=== PATIENT | female | born 1950 | race Caucasian/White ===

== ENCOUNTER 2016-10-15 10:24 | Emergency (ER) | payer MEDICARE ==
[2016-10-15] MEDS ORDERED: Sterile Water 10 ML ONE (11:43)
[2016-10-15] MEDS ORDERED: methylPREDNISolone Sod Succ/PF 125 MG/2 ML VIAL ONE (11:43)
[2016-10-15] MEDS ORDERED: Ondansetron HCl/PF 4 MG/2 ML Vial ONE (11:43)
[2016-10-15] MEDS ORDERED: Azithromycin 250 MG TAB ONE (11:43)
[2016-10-15] MEDS ORDERED: Dexamethasone 10 MG/ML VIAL ONE (11:43)
[2016-10-15] MEDS ORDERED: Ketorolac Tromethamine 30 MG/ML VIAL ONE (11:43)
[2016-10-15 12:17] LABS: ALT (SGPT) 23 U/L (0-55); AST (SGOT) 23 U/L (5-34); Albumin 3.8 g/dL (3.4-4.8); Alkaline Phosphatase 91 U/L (40-150); Anion Gap 15 mmol/L (10-20); BUN (Urea Nitrogen) 23 mg/dL (9.8-20.1); Bilirubin, Total 0.3 mg/dL (0.2-1.2); Calc. Creatinine Clearance 0 mL/min (70-130); Calcium 9.1 mg/dL (7.8-10.44); Carbon Dioxide 28 mmol/L (23-31); Chloride 99 mmol/L (98-107); Estimated GFR-MDRD 40; Globulin 3.3 g/dL (2.4-3.5); Glucose 124 mg/dL (80-115); Potassium 3.8 mmol/L (3.5-5.1); Protein, Total 7.1 g/dL (5.8-8.1); Sodium 138 mmol/L (136-145)
--- NOTE | 2016-10-15 12:17 | RAD ---
PA AND LATERAL CHEST X-RAY 10/15/2016 HISTORY: Dyspnea. COMPARISON: 08/14/2016. FINDINGS: Cardiac silhouette remains at the upper limits of normal in size. Pulmonary vasculature is within n ormal limits, and the lungs remain clear. There are degenerative changes in the spine with right co nvex scoliosis of the thoracic spine. No other interval change. IMPRESSION: No acute cardiopulmonary process. Chest is stable from prior exam. POS: [facility]
[2016-10-15 12:26] LABS: Band 10 % (5-11); Hemoglobin 13.7 g/dL (12.0-16.0); Lymphocytes 18 % (21-51); MDiff Complete? YES; Mean Corpuscular HGB CONC 33.6 g/dL (32.0-36.0); Mean Corpuscular Hemoglobin 30.6 pg (27.0-31.0); Mean Corpuscular Volume 90.9 fl (81.0-99.0); Mean Platelet Volume 8.3 fL (7.4-10.4); Monocytes 15 % (0-10); Neutrophil 57 % (42-75); Platelet Count 194 thou/uL (130-400); RBC Distribution Width 11.8 % (11.5-14.5); Red Blood Cell (RBC) Count 4.47 mill/uL (4.20-5.40); White Blood Cell (WBC) Count 5.9 thou/uL (4.8-10.8)
--- NOTE | 2016-10-15 12:49 | PICIS ---
[facility] EMERGENCY RECORD TRIAGE (FriOct 15, 2016 10:29 SFRE) TRIAGE NOTES: REPORTS WORSENING OF BRONCHITIS. (FriOct 15, 2016 10:29 SFRE) PATIENT: NAME: Isi Bennett, AGE: 66, GENDER: female, : Fri1950, TIME OF GREET: FriOct 15, 2016 10:25, PREFERRED LANGUAGE: Namibian, ETHNICITY: Not or , ECODE BILLING MAP: [facility], SSN: [id number], Zip Code: [address], KG WEIGHT: [phone], PHONE: , , , PERSON ID: [id number], PCP: MD CECI, LORRAINE. (FriOct 15, 2016 10:29 SFRE) COMPLAINT: DIFFICULTY BREATHING. (FriOct 15, 2016 10:29 SFRE) ADMISSION: URGENCY: 3 Urgent, ADMISSION SOURCE: Home, TRANSPORT: Walk-in, BED: ED -02. (FriOct 15, 2016 10:29 SFRE) PAIN: Patient complains of pain described as, sharp, on a scale 0-10 patient rates pain as 8, Location CHEST ONLY WHEN COUGHING, Pain is intermittent, Aggravating factors:, Aggravating factors include COUGH. (10:32 SFRE) IMMUNIZATIONS: Flu vaccine not up to date, Tetanus immunization up to date, Date of immunization: 08/2016, Pneumococcal vaccine not up to date. (10:32 SFRE) SIRS SCORING: Heart Rate 55-109 (0), Temp range 96.8-101.1 (0), respiratory rate 12-24 (0), Mental Status altered: no (0). (10:32 SFRE) TRIAGE SCREENING: Patient denies suicidal ideation, Patient denies presence of domestic violence. (10:32 SFRE) PROVIDERS: TRIAGE NURSE: Ada West RN. (FriOct 15, 2016 10:29 SFRE) VITAL SIGNS: BP 121/77, Pulse 97, Resp 20, Temp 99.5, (Tympanic), Pain 8, (Intermittent), O2 Sat 98, on Room Air, Time 10/15/2016 10:28. (10:28 SFRE) KNOWN ALLERGIES Penicillins CURRENT MEDICATIONS No recorded medications VITAL SIGNS (10:28 SFRE) VITAL SIGNS: BP: 121/77, Pulse: 97, Resp: 20, Temp: 99.5 (Tympanic), Pain: 8 (Intermittent), O2 sat: 98 on Room Air, Time: 10/15/2016 10:28. NURSING ASSESSMENT: ENT (11:50 SFRE) CONSTITUTIONAL: Patient arrives ambulatory, Gait steady, History obtained from patient, Patient appears comfortable, Patient cooperative, Patient alert, Oriented to person, place and time, Skin warm, Skin dry, Skin normal in color, Mucous membranes pink, Mucous membranes moist, Patient is well-groomed, Patient complains of COUGH, CONGESTION, BODY ACHES. &a-1R&a+25V*p+0X*z8253F*c202B*c15G*c2P*p-0X&a-25V&a+1R Name: Isi Bennett : 1950 F66 MedRec: [id number] AcctNum: [id number] Prepared: FriOct 15, 2016 13:00 by Interface Page 1 of 10 pMD [facility] EMERGENCY RECORD PAIN: aching pain, dull pain, GENERALIZED BODY ACHES, intermittent, on a scale 0-10 patient rates pain as 8, STATES IT ONLY HURTS WHEN SHE COUGHS, Pain exacerbated by, cough, Nothing has been tried to alleviate the pain. ENT: Congestion, bilaterally, Mouth and throat assessment findings include mouth inspection normal, Uvula normal, Tonsils normal, Mucous membranes pink, and moist, Able to swallow, Speech normal. RESPIRATORY/CHEST: Lungs auscultated, Breath sounds with wheezing, Respiratory assessment findings include respiratory effort easy, Respirations regular, Conversing normally, Neck and chest exam findings include trachea midline, Chest expansion equal, Chest movement symmetrical, no signs of distress, Associated with cough, loose, non-productive. SAFETY: Side rails up, Cart/Stretcher in lowest position, Family at bedside, Call light within reach, Hospital ID band on. NURSING PROCEDURE: NURSE NOTES NURSES NOTES: Notes: REFUSES IV. DR LAL NOTIFIED. (11:49 SFRE) Notes: TOLERATING BREATHING TREATMENT. (11:53 SFRE) ORDER DETAILS Order Name: CBC with Differential, Status: Active, Time: 11:10 10/15/2016, User: BARBER, - Ordered for: MD Lal Lloyd, - Entered by: MD Lal Lloyd - Tue Oct 15, 2016 11:10, - Quantity: 1, Order Name: Comprehensive Metabolic Panel, Status: Active, Time: 11:10 10/15/2016, User: BARBER, - Ordered for: MD Lal Lloyd, - Entered by: MD Lal Lloyd - Tue Oct 15, 2016 11:10, - Quantity: 1, Order Name: ERRT * Smal Vol Neb Initial Trmt, Status: Active, Time: 11:11 10/15/2016, User: BARBER, - Ordered for: MD Lal Lloyd, - Entered by: MD Lal Lloyd - Tue Oct 15, 2016 11:11, - Quantity: 1, Order Name: ERRT Small Vol Neb Sub Trmt, Status: Active, Time: 11:11 10/15/2016, User: BARBER, - Ordered for: MD Lal Lloyd, - Entered by: MD Lal Lloyd - Tue Oct 15, 2016 11:11, - Quantity: 1, Order Name: Influenza A&B Ag Screen, Status: Active, Time: 11:11 10/15/2016, User: BARBER, - Ordered for: MD Lal Lloyd, - Entered by: MD Lal Lloyd - Tue Oct 15, 2016 11:11, - Quantity: 1, &a-1R&a+25V*p+0X*s7428V*c202B*c15G*c2P*p-0X&a-25V&a+1R Name: Isi Bennett : 1950 F66 MedRec: [id number] AcctNum: [id number] Prepared: FriOct 15, 2016 13:00 by Interface Page 2 of 10 [facility] EMERGENCY RECORD Order Name: HERMELINDA RESENDEZ, Status: Done, Time: 11:12 10/15/2016, User: STEPHANIE, - Ordered for: MD Lal Lloyd, - Entered by: MD Lal Lloyd - Tue Oct 15, 2016 11:11, - Quantity: 1, Order Name: Strep Group A Screen, Status: Active, Time: 11:10 10/15/2016, User: BARBER, - Ordered for: MD Lal Lloyd, - Entered by: MD Lal Lloyd - Tue Oct 15, 2016 11:10, - Quantity: 1, Order Name: XR Chest Pa & Lat STANDARD, Status: Active, Time: 11:16 10/15/2016, User: BARBER, - Ordered for: MD Lal Lloyd, - Entered by: MD Lal Lloyd - jax Oct 15, 2016 11:16, - Quantity: 1. MEDICATION ADMINISTRATION SUMMARY Drug Name: Decadron injection, Dose Ordered: 10 mg, Route: IV Push, Status: Canceled, Time: 12:01 10/15/2016, Drug Name: Zofran intravenous, Dose Ordered: 4 mg, Route: IV Push, Status: Canceled, Time: 12:00 10/15/2016, Drug Name: Toradol intravenous, Dose Ordered: 15 mg, Route: IV Push, Status: Canceled, Time: 12:00 10/15/2016, Drug Name: Solu-MEDROL Mix-O-Vial, Dose Ordered: 125 mg, Route: IV Push, Status: Canceled, Time: 12:00 10/15/2016, Drug Name: Zithromax oral, Dose Ordered: 500 mg, Route: Oral, Status: Given, Time: 11:48 10/15/2016, Drug Name: DuoNeb, Dose Ordered: 1 inhalation, Route: Nebulize, Status: Given, Time: 11:28 10/15/2016, Detailed record available in Medication Service section. MEDICATION SERVICE DuoNeb: Order: DuoNeb (ipratropium bromide/albuterol sulfate) - Dose: 1 inhalation : Nebulize Schedule: Every 5 minutes Repeat: 3 DOSES Ordered by: Damien Lal MD Entered by: Damien Lal MD FriOct 15, 2016 11:13 Documented as given by: Ada West RN FriOct 15, 2016 11:28 Patient, Medication, Dose, Route and Time verified prior to administration. Amount given: 3 DOSES, With oxygen, Correct patient, time, route, dose and medication confirmed prior to administration, Patient advised of actions and side-effects prior to administration, Allergies confirmed and medications reviewed prior to administration, Patient in position of comfort, Side rails up, Cart in lowest position. Zithromax oral: Order: Zithromax oral (azithromycin) - Dose: 500 mg : Oral Schedule: Now &a-1R&a+25V*p+0X*z7151U*c202B*c15G*c2P*p-0X&a-25V&a+1R Name: Isi Bennett : 1950 F66 MedRec: [id number] AcctNum: [id number] Prepared: FriOct 15, 2016 13:00 by Interface Page 3 of 10 pMD [facility] EMERGENCY RECORD Ordered by: Damien Lal MD Entered by: Damien Lal MD FriOct 15, 2016 11:13 , Acknowledged by: Ada West RN FriOct 15, 2016 11:29 Documented as given by: Ada West RN FriOct 15, 2016 11:48 Patient, Medication, Dose, Route and Time verified prior to administration. Amount given: 500MG, Site: Medication administered P.O., Correct patient, time, route, dose and medication confirmed prior to administration, Patient advised of actions and side-effects prior to administration, Allergies confirmed and medications reviewed prior to administration, Patient in position of comfort, Side rails up, Cart in lowest position. (CANCELED) Decadron injection: Order: Decadron injection (dexamethasone sod phosphate) - Dose: 10 mg : IV Push Schedule: Now Ordered by: Damien Lal MD Entered by: Damien Lal MD FriOct 15, 2016 11:13 , Acknowledged by: Ada West RN FriOct 15, 2016 11:29 Canceled by: Ada West RN. FriOct 15, 2016 12:01 Cancel reason: Patient refused:ROUTE UNAVAILABLE. (CANCELED) Solu-MEDROL Mix-O-Vial: Order: Solu-MEDROL Mix-O-Vial (methylprednisolone sod succ) - Dose: 125 mg : IV Push Schedule: Now Ordered by: Damien Lal MD Entered by: Damien Lal MD FriOct 15, 2016 11:13 , Acknowledged by: Ada West RN FriOct 15, 2016 11:29 Canceled by: Ada West RN. FriOct 15, 2016 12:00 Cancel reason: Patient refused:Change in medication plan:ROUTE UNAVAILABLE. (CANCELED) Toradol intravenous: Order: Toradol intravenous (ketorolac tromethamine) - Dose: 15 mg : IV Push Schedule: Now Ordered by: Damien Lal MD Entered by: Damien Lal MD FriOct 15, 2016 11:13 , Acknowledged by: Ada West RN FriOct 15, 2016 11:29 Canceled by: Ada West RN. FriOct 15, 2016 12:00 Cancel reason: Patient refused:ROUTE UNAVAILABLE. (CANCELED) Zofran intravenous: Order: Zofran intravenous (ondansetron HCl) - Dose: 4 mg : IV Push Schedule: Now Ordered by: Damien Lal MD Entered by: Damien Lal MD FriOct 15, 2016 11:13 , Acknowledged by: Ada West RN FriOct 15, 2016 11:29 Canceled by: Ada West RN. FriOct 15, 2016 12:00 Cancel reason: Patient refused:ROUTE UNAVAILABLE. HPI COUGH (11:21 LLDO) CHIEF COMPLAINT: Patient presents for evaluation of cough, productive of green sputum, Denies barking cough, Patient presents for evaluation of had a nasty bronchitis &a-1R&a+25V*p+0X*x1772Q*c202B*c15G*c2P*p-0X&a-25V&a+1R Name: Isi Bennett : 1950 F66 MedRec: [id number] AcctNum: [id number] Prepared: FriOct 15, 2016 13:00 by Interface Page 4 of 10 pMD [facility] EMERGENCY RECORD in july last year that never seemed to totally clear (but never took her abx). apruptly started worsening 4-5 days ago with increased cough and sputum. some sore throat and headache and body aches. feverish but temp not taken. HISTORIAN: History provided by patient. LOCATION: Symptoms are generalized. QUALITY: Symptoms described as tightness, Symptoms described as wheezing, has neb machine at home but effects seem very transient to pt. last used about 0800 today with scant relief. SEVERITY: Maximum severity of symptoms moderate, Currently symptoms are moderate. TIME COURSE: Gradual onset of symptoms, Symptoms are worsening, are constant. ASSOCIATED WITH: Associated symptoms reviewed, Associated with dyspnea on exertion, Associated with fever, subjective, Associated with hyperventilation, Associated with increased inhaler use, Associated with upper respiratory infection, Associated with wheezing, Associated with weakness. EXACERBATED BY: Patient's condition exacerbated by deep breaths, Patient's condition exacerbated by exercise, Patient's condition exacerbated by lying flat. RELIEVED BY: Patient's condition relieved by nothing. ROS CONSTITUTIONAL: Historian reports fatigue, reports fever, reports malaise. (11:26 LLDO) EYES: Negative eye review of systems, Historian denies eye pain, denies eye redness, denies eye discharge. (11:31 LLDO) ENT: Historian reports sore throat. (11:26 LLDO) CARDIOVASCULAR: Historian reports dyspnea on exertion. (11:26 LLDO) RESPIRATORY: Historian denies cough, reports sputum. described as thick, green, Historian reports wheezing, green. (11:26 LLDO) GI: Negative gastrointestinal review of systems, Historian denies abdominal pain, denies constipation, denies diarrhea, denies nausea, denies vomiting. (11:31 LLDO) GENITOURINARY FEMALE: Negative genitourinary review of systems, Historian denies dysuria, denies frequency, denies urgency. (11:31 LLDO) MUSCULOSKELETAL: Negative musculoskeletal review of systems, Historian denies arthralgias, denies back pain, denies injury, denies myalgias, denies neck pain. (11:31 LLDO) SKIN: Negative skin review of systems, Historian denies cellulitis, denies rash, denies skin changes, denies skin lesions. (11:31 LLDO) NEUROLOGIC: Historian denies confusion, denies dizziness, denies dysphasia, denies focal weakness, denies gait changes, reports headache, denies irritability, denies lethargy, denies mental &a-1R&a+25V*p+0X*q3907M*c202B*c15G*c2P*p-0X&a-25V&a+1R Name: Isi Bennett : 1950 F66 MedRec: [id number] AcctNum: [id number] Prepared: Tito Oct 15, 2016 13:00 by Interface Page 5 of 10 pMD [facility] EMERGENCY RECORD status changes. (11:26 LLDO) HEMO/LYMPHATIC: Normal hematologic/lymphatic system review, Historian denies abnormal blood clotting, denies gum bleeding, denies petechiae. (11:31 LLDO) ALLERGIC/IMMUNOLOGIC: Normal allergy/immunologic system review, Historian denies eczema, denies environmental allergies, denies food allergies. (11:31 LLDO) PSYCHIATRIC: Negative psychiatric review of systems, Historian denies alcohol abuse, denies anxiety, denies depression, denies drug abuse, denies hallucinations. (11:31 LLDO) NOTES: All systems reviewed, negative except as described above. (11:26 LLDO) PAST MEDICAL HISTORY MEDICAL HISTORY: Past medical history includes history of hyperlipidemia, Past medical history includes history of hypertension, Past medical history includes history of obesity, Past medical history includes pulmonary disease, asthma. (10:32 SFRE) FEMALE SURGICAL HISTORY: Patient's surgical history is not relevant to the management of the case. (10:32 SFRE) PSYCHIATRIC HISTORY: Notes: DENIES. (10:32 SFRE) SOCIAL HISTORY: Patient denies alcohol use, Patient denies drug use, Patient has no smoking history. (10:32 SFRE) FAMILY HISTORY: Family istory is not significant. (10:32 SFRE) NOTES: Nursing records reviewed, Agree with nursing records, Medication list reviewed. (11:30 LLDO) PHYSICAL EXAM CONSTITUTIONAL: Vital Signs Reviewed, Patient afebrile, Pulse normal, Blood pressure normal, Respiratory rate normal, Normal pulse oximetry, Patient appears, uncomfortable, Patient appears, in moderate pain distress, Patient alert and oriented to person, place and time, Nursing notes reviewed. (11:28 LLDO) HEAD: Head exam normal, Head exam included findings of head atraumatic, normocephalic. (11:31 LLDO) EYES: Eye exam normal, Eye exam included findings of eyelids normal to inspection, Pupils equally round and reactive to light, Extraocular muscles intact. (11:31 LLDO) ENT: Ear exam normal, Nose exam normal, Pharynx, injected bilaterally, with swelling bilaterally, symmetrical, Uvula exam normal, Mouth exam normal. (11:28 LLDO) NECK: Neck exam included findings of normal range of motion, Trachea midline, Thyroid normal, no meningeal signs, no cervical adenopathy. (11:28 LLDO) RESPIRATORY CHEST: Respiratory exam included findings of no respiratory distress, Wheezing present, Rales present, No rhonchi, Breath sounds not absent, Breath sounds not diminished, Chest exam included findings of chest movement &a-1R&a+25V*p+0X*q1245J*c202B*c15G*c2P*p-0X&a-25V&a+1R Name: Isi Bennett : 1950 F66 MedRec: [id number] AcctNum: [id number] Prepared: FriOct 15, 2016 13:00 by Interface Page 6 of 10 pMD [facility] EMERGENCY RECORD symmetrical, Chest expansion equal, no tenderness, RALES AND WHEEZES MILD AND SCATTERED. (11:28 LLDO) CARDIOVASCULAR: Cardiovascular assessment normal, Cardiovascular exam included findings of heart rate regular rate and rhythm, Heart sounds normal. (11:31 LLDO) ABDOMEN FEMALE: Abdominal exam normal, Abdominal exam included findings of abdomen nontender, Bowel sounds normal, no peritoneal signs. (11:31 LLDO) BACK: Back exam normal, Back exam included findings of normal inspection, range of motion normal. (11:31 LLDO) UPPER EXTREMITY: Upper extremity exam normal, Upper extremity exam included findings of inspection normal, Range of motion normal. (11:31 LLDO) LOWER EXTREMITY: Lower extremity exam normal, Lower extremity exam included findings of inspection normal, Range of motion normal. (11:31 LLDO) NEURO: Neuro exam normal, Neuro exam findings include patient oriented to person, place and time, Speech normal, Farida coma scale 15. (11:31 LLDO) SKIN: Skin exam normal, Skin exam included findings of skin warm, dry, and normal in color, no rash. (11:31 LLDO) PSYCHIATRIC: Psychiatric exam normal, Psychiatric exam included findings of patient oriented to person place and time, Normal affect. (11:31 LLDO) EVENTS TRANSFER: Triage to Emergency Main ED -02. (FriOct 15, 2016 10:29 SFRE) Removed from Emergency Main ED -02. (12:57 SFRE) PROBLEM LIST No recorded problems DIAGNOSIS (12:42 LLDO) FINAL: PRIMARY: Influenza A, ADDITIONAL: Acute bronchitis. DISPOSITION PATIENT: Disposition Type: Discharge, Disposition: *Discharge Home. (12:42 LLDO) Patient left the department. (12:57 SFRE) INSTRUCTION (12:44 LLDO) DISCHARGE: INFLUENZA (ADULT), BRONCHITIS, ABX TX (ADULT). FOLLOWUP: MD CECI, LORRAINE, [facility], [address] [place] [id number], [phone], Follow up with Primary Care Physician in 7-10 days. SPECIAL: Follow-up with your PCP. PRESCRIPTION &a-1R&a+25V*p+0X*s4374B*c202B*c15G*c2P*p-0X&a-25V&a+1R Name: Isi Bennett : 1950 F66 MedRec: [id number] AcctNum: [id number] Prepared: FriOct 15, 2016 13:00 by Interface Page 7 of 10 pMD [facility] EMERGENCY RECORD Phenergan DM: SYRUP : : ORAL : Quantity: 1-2 Unit: teaspoon Route: ORAL Schedule: every 4 hours prn Dispense: 180 Unit: mL May substitute. Refills: No Refills . (12:43 LLDO) NOTES: No Refills. (12:43 LLDO) predniSONE oral: TABLET : 20 mg : ORAL : Quantity: * Unit: Route: ORAL Schedule: See Notes Dispense: 2O May substitute. Refills: No Refills . (12:43 LLDO) NOTES: 3 TABS PER DAY FOR 3 DAYS, THEN 2 TABS PER DAY FOR 3 DAYS, THEN ONE TAB PER DAY UNTIL GONE No Refills. (12:43 LLDO) Zithromax Z-Inder: CAPSULE (HARD, SOFT, ETC.) : 250 mg : ORAL : Quantity: * Unit: Route: ORAL Schedule: See Notes Dispense: 1PK May substitute. Refills: No Refills . (12:43 LLDO) NOTES: TAKE DIRECTED ON PACKAGE No Refills. (12:43 LLDO) Ultram: TABLET : 50 mg : ORAL : Quantity: 1-2 Unit: tab(s) Route: ORAL Schedule: every 4 hours prn Dispense: 30 Unit: tab(s) May substitute. Refills: No Refills . (12:45 LLDO) NOTES: No Refills. (12:45 LLDO) IMAGING (12:56 SFRE) *DISCHARGE INSTRUCTIONS RECEIPT: Image captured from scanner. Page 2 added. Image captured from scanner. *SUPPLY CHARGE SHEET: Image captured from scanner. ADMIN (12:45 LLDO) DIGITAL SIGNATURE: MD Lal Lloyd. RESULTS MICROBIOLOGY: Influenza A&B Ag Screen: [id number] Collection DT: FriOct 15, 2016 11:29, See comment below , @ ER ROOM#: ED-02 Source: Nasal swab Spec Desc: , *Influenza A Antigen: POSITIVE for the , * presence of , * INFLUENZA A Antigen , * - H , Influenza B Antigen: NEGATIVE for the , presence of , INFLUENZA B Antigen , The rapid Flu A&B test can distinguish between influenza A , Influenza A&B Ag Screen See comment below , and B viruses, but it does not differentiate influenza , Influenza A&B Ag Screen See comment below , subtypes. , Influenza A&B Ag Screen See comment below , Influenza A&B Ag Screen See comment below , &a-1R&a+25V*p+0X*y6453L*c202B*c15G*c2P*p-0X&a-25V&a+1R Name: Isi Bennett : 1950 F66 MedRec: [id number] AcctNum: [id number] Prepared: FriOct 15, 2016 13:00 by Interface Page 8 of 10 pMD [facility] EMERGENCY RECORD Influenza A&B Ag Screen See comment below , Influenza A&B Ag Screen See comment below , characteristics of this device with human specimens infected , Influenza A&B Ag Screen See comment below , with the 2008 H1N1 influenza virus have not been , Influenza A&B Ag Screen See comment below , established. For example: this test cannot distinguish , Influenza A&B Ag Screen See comment below , influenza infections caused by novel H1N1 influenza A , Influenza A&B Ag Screen See comment below , viruses versus seasonal influenza A viruses. , Influenza A&B Ag Screen See comment below , , Influenza A&B Ag Screen See comment below , A negative result does not exclude influenza virus , Influenza A&B Ag Screen See comment below , infection; therefore, if more conclusive testing is desired, , Influenza A&B Ag Screen See comment below , follow up confirmatory testing is warranted., Influenza A&B Ag Screen See comment below . (11:51 LWAL) Strep Group A Screen: [id number] Collection DT: FriOct 15, 2016 11:29, See comment below , @ ER ROOM#: ED-02 Source: Throat Spec Desc: PENDING, Strep A Negative CDC recommends , confirmation by , culture on all , negative , Strep negative line 1 Group A , Streptococcus rapid , screens. Please , order , Strep negative line 2 a throat culture if , clinically , indicated. , Rapid Strep Screen:Throat Negative . (11:51 LWAL) LABORATORY: Comprehensive Metabolic Panel Collection DT: FriOct 15, 2016 11:56, Sodium 138 mmol/L, Range (136-145), Potassium 3.8 mmol/L, Range (3.5-5.1), Chloride 99 mmol/L, Range (98-107), Carbon Dioxide 28 mmol/L, Range (23-31), Anion Gap 15 mmol/L, Range (10-20), *BUN (Urea Nitrogen) 23 - H mg/dL, Range (9.8-20.1), *Creatinine 1.34 - H mg/dL, Range (0.6-1.1), Estimated GFR-MDRD 40 , Reference Range for Estimated GFR: Greater than 90, mL/min/1.73 m2 NOTE: The MDRD equation has not been validated for use, with the &a-1R&a+25V*p+0X*g9656P*c202B*c15G*c2P*p-0X&a-25V&a+1R Name: Isi Bennett : 1950 F66 MedRec: [id number] AcctNum: [id number] Prepared: FriOct 15, 2016 13:00 by Interface Page 9 of 10 pMD [facility] EMERGENCY RECORD elderly (over 70 years of age), women, patients with, serious comorbid condition or persons with extremes of body size, muscle, mass, or nutritional status. , *Glucose 124 - H mg/dL, Range (80-115), Calcium 9.1 mg/dL, Range (7.8-10.44), Bilirubin, Total 0.3 mg/dL, Range (0.2-1.2), Protein, Total 7.1 g/dL, Range (5.8-8.1), NOTE: Plasma values are generally 0.3 to 0.5 g/dL higher than serum values, due to the presence of fibrinogen. , Albumin 3.8 g/dL, Range (3.4-4.8), Globulin 3.3 g/dL, Range (2.4-3.5), Alb/Glob Ratio 1.2 g/dL, Range (1.2-2.2), Alkaline Phosphatase 91 U/L, Range (40-150), AST (SGOT) 23 U/L, Range (5-34), ALT (SGPT) 23 U/L, Range (0-55). (12:21 SFRE) CBC with Differential Collection DT: FriOct 15, 2016 11:56, White Blood Cell (WBC) Count 5.9 thou/uL, Range (4.8-10.8), Red Blood Cell (RBC) Count 4.47 mill/uL, Range (4.20-5.40), Hemoglobin 13.7 g/dL, Range (12.0-16.0), Hematocrit 40.7 %, Range (36.0-47.0), Mean Corpuscular Volume 90.9 fl, Range (81.0-99.0), Mean Corpuscular Hemoglobin 30.6 pg, Range (27.0-31.0), Mean Corpuscular HGB CONC 33.6 g/dL, Range (32.0-36.0), RBC Distribution Width 11.8 %, Range (11.5-14.5), Platelet Count 194 thou/uL, Range (130-400), Mean Platelet Volume 8.3 fL, Range (7.4-10.4), Neutrophil 57 %, Range (42-75), Band 10 %, Range (5-11), *Lymphocytes 18 - L %, Range (21-51), *Monocytes 15 - H %, Range (0-10). (12:36 [facility] Holguin: BARBER=MD Hali, Damien LWAL=SVETA Ortiz, Deidre SFRE=SVETA West, Ada &a-1R&a+25V*p+0X*y2805G*c202B*c15G*c2P*p-0X&a-25V&a+1R Name: Isi Bennett : 1950 F66 MedRec: [id number] AcctNum: [id number] Prepared: FriOct 15, 2016 13:00 by Interface Page 10 of 10 pMD [facility] MEDICATION RECONCILIATION You were seen in the Emergency Department on: FriOct 15, 2016 KNOWN ALLERGIES Penicillins MEDICATIONS GIVEN WHILE IN THE EMERGENCY DEPARTMENT DuoNeb (ipratropium bromide/albuterol sulfate) - Dose: 1 inhalation : Nebulize Zithromax oral (azithromycin) - Dose: 500 milligram(s) : Oral Notes from the emergency department Reviewed with family Reviewed with patient Reviewed with family Reviewed with patient PRESCRIPTIONS (4) Printed (4) Phenergan DM : SYRUP : : ORAL Quantity: 1-2, Unit: teaspoon, Route: ORAL, Schedule: every 4 hours prn, Dispense: 180 Unit: milliliter(s) predniSONE oral : TABLET : 20 mg : ORAL Quantity: *, Unit: *, Route: ORAL, Schedule: See Notes, Dispense: 2O Zithromax Z-Inder : CAPSULE (HARD, SOFT, ETC.) : 250 mg : ORAL Quantity: *, Unit: *, Route: ORAL, Schedule: See Notes, Dispense: 1PK &a-1R&a+25V*p+0X*a1134U*c202B*c15G*c2P*p-0X&a-25V&a+1R Name: Isi Bennett : 1950 F66 MedRec: [id number] AcctNum: [id number] Prepared: Tito Oct 15, 2016 13:00 by Interface Milton MARCELO
== END 2016-10-15 12:57 | disposition home or self-care (01) ==
LOC: MADERS 10:24
DX: J20.9 Acute bronchitis, unspecified (principal); J11.1 Influenza due to unidentified influenza virus with other respiratory manifestations; I10 Essential (primary) hypertension; J45.909 Unspecified asthma, uncomplicated; E78.5 Hyperlipidemia, unspecified
CPT/HCPCS: 36415; 71020; 80053; 85025; 87430; 94640; A4216; J1100; J1885; J2405; J2930; J7620

== ENCOUNTER 2016-10-30 09:18 | Outpatient (CLI) | payer MEDICARE ==
[2016-10-30 09:37] LABS: #Basophils 0.1 thou/uL (0.0-0.2); #Eosinphils 0.3 thou/uL (0.0-0.7); #Lymphocytes 1.2 thou/uL (1.20-3.40); #Monocytes 0.4 thou/uL (0.11-0.59); #Neutrophils 4.3 thou/uL (1.40-6.50); %Basophils 1.1 % (0.0-1.0); %Lymphocytes 19.2 % (21.0-51.0); %Monocytes 6.7 % (0.0-10.0); Hemoglobin 13.9 g/dL (12.0-16.0); Mean Corpuscular HGB CONC 34.1 g/dL (32.0-36.0); Mean Corpuscular Hemoglobin 30.6 pg (27.0-31.0); Mean Corpuscular Volume 89.7 fl (81.0-99.0); Mean Platelet Volume 7.8 fL (7.4-10.4); Platelet Count 240 thou/uL (130-400); RBC Distribution Width 11.4 % (11.5-14.5); Red Blood Cell (RBC) Count 4.53 mill/uL (4.20-5.40); White Blood Cell (WBC) Count 6.3 thou/uL (4.8-10.8)
[2016-10-30 09:45] LABS: Hemoglobin A1c 5.1 % (4.0-6.0)
[2016-10-30 09:53] LABS: ALT (SGPT) 25 U/L (0-55); AST (SGOT) 21 U/L (5-34); Albumin 3.9 g/dL (3.4-4.8); Alkaline Phosphatase 85 U/L (40-150); Anion Gap 15 mmol/L (10-20); BUN (Urea Nitrogen) 28 mg/dL (9.8-20.1); Bilirubin, Total 0.7 mg/dL (0.2-1.2); Calc. Creatinine Clearance 0 mL/min (70-130); Carbon Dioxide 27 mmol/L (23-31); Cardiac Risk 3.2 (Less than 4.5); Chloride 103 mmol/L (98-107); Cholesterol 161 mg/dL (< 200 Desired); Estimated GFR-MDRD 36; Globulin 3.1 g/dL (2.4-3.5); Glucose 98 mg/dL (80-115); HDL Cholesterol 50 mg/dL (>60 Neg Risk); LDL Cholesterol, Calculated 83 mg/dL; Potassium 4.2 mmol/L (3.5-5.1); Sodium 141 mmol/L (136-145); Triglycerides 141 mg/dL (Less than 150)
[2016-10-30 11:05] LABS: Thyroid Stimulating Hormone 2.125 uIU/mL (0.35-4.94)
[2016-10-30 12:40] LABS: Vitamin D, 25 Hydroxy 42.8 ng/mL (> 30.0)
== END 2016-10-30 09:19 ==
LOC: MADLABBHPM 09:18
PROVIDERS: ATTEND Family Medicine
DX: Z01.419 Encounter for gynecological examination (general) (routine) without abnormal findings (principal)
CPT/HCPCS: 36415; 80053; 80061; 82306; 83036; 84443; 85025

== ENCOUNTER 2017-04-02 08:26 | Outpatient (CLI) | payer MEDICARE ==
[2017-04-02 09:23] LABS: ALT (SGPT) 23 U/L (8-55); AST (SGOT) 25 U/L (5-34); Albumin 3.8 g/dL (3.4-4.8); Alkaline Phosphatase 91 U/L (40-150); Anion Gap 13 mmol/L (10-20); BUN (Urea Nitrogen) 24 mg/dL (9.8-20.1); Bilirubin, Total 0.8 mg/dL (0.2-1.2); Calc. Creatinine Clearance 0 mL/min (70-130); Calcium 9.5 mg/dL (7.8-10.44); Carbon Dioxide 30 mmol/L (23-31); Cardiac Risk 3.4 (Less than 4.5); Chloride 102 mmol/L (98-107); Cholesterol 156 mg/dl (< 200 Desired); Estimated GFR-MDRD 36; Globulin 3.6 g/dL (2.4-3.5); Glucose 98 mg/dL (80-115); HDL Cholesterol 46 mg/dL (>60 Neg Risk); LDL Cholesterol, Calculated 95 mg/dL; Potassium 4.3 mmol/L (3.5-5.1); Protein, Total 7.4 g/dL (6.0-8.3); Sodium 141 mmol/L (136-145); Triglycerides 73 mg/dL (Less than 150)
== END 2017-04-02 08:27 | disposition home or self-care (01) ==
LOC: MADLABBHPM 08:26
PROVIDERS: ATTEND Family Medicine
DX: E78.5 Hyperlipidemia, unspecified (principal); I10 Essential (primary) hypertension
CPT/HCPCS: 80053; 80061; 84443